=== PATIENT | male | born 1990 | race Two or more races ===

== ENCOUNTER 2023-04-08 07:38 | Emergency (ER) | payer OTHER ==
[~2023-04-08] VITALS: Ht 188 cm; Wt 117.9 kg
[2023-04-08 07:47] VITALS: BP 156/95; TEMP 99.2
[2023-04-08] MEDS ORDERED: KETOROLAC TROMETHAMINE 15 MG/ML VIAL ONE (08:33)
[2023-04-08] MEDS: KETOROLAC TROMETHAMINE 15 MG/ML VIAL IM ONE (08:40)
[2023-04-08] MEDS ORDERED: IBUP-1955 PO (08:43)
[2023-04-08] MEDS ORDERED: BENZ-13 PO (08:43)
[2023-04-08 09:05] VITALS: O2SAT 99
== END 2023-04-08 09:13 | disposition home or self-care (01) ==
LOC: ER 07:52
DX: J06.9 Acute upper respiratory infection, unspecified (principal); J02.9 Acute pharyngitis, unspecified; R05.9 Cough, unspecified; R09.81 Nasal congestion; Z20.822 Contact with and (suspected) exposure to COVID-19
CPT/HCPCS: 99283; 87426; 96372; 87804 ×2; 87420; J1885